=== PATIENT | male | born 1995 ===

== ENCOUNTER 2017-10-01 11:42 | Emergency (ER) | payer OTHER ==
[2017-10-01 11:49] VITALS: O2SAT 98
--- NOTE | 2017-10-01 13:57 | ED PDOC ---
HPI: Neurologic - General Time Seen by Provider: 10/01/17 12:14 Chief Complaint (Nursing): Weakness/Neurological Deficit Chief Complaint (Provider): Left Sided Facial Paresthesia Source: patient Exam Limitations: no limitations - History of Present Illness Timing/Duration: other (x4 days) Associated Symptoms: paresthesia Allergies/Adverse Reactions: Allergies No Known Allergies Allergy (Verified 10/01/17 12:07) Home Medications: Ambulatory Orders Acyclovir 400 mg PO 5XD #50 tablet 10/01/17 Prednisone [Deltasone] 20 mg PO DAILY #24 tablet 10/01/17 Additional Complaint(s): Markell Buitrago is a 21 year old male, with no significant past medical history, who presents to the emergency department for evaluation of left sided facial paresthesias for the last x4 days. He reports numbness and tingling and states he can't blink completely with his left eyelid. Patient also reports increase tearing from the left eye, numbness and tingling to left side of the tongue and states his taste of food has been altered. He took no medications [employer]GR[employer]HER. He denies any extremity weakness, numbness, headache, vision changes, fever, or chills. No further medical complaints. PMD: None. Past Medical History Reviewed: Historical Data, Nursing Documentation, Vital Signs Vital Signs: Last Vital Signs Temp 99.0 F 10/01/17 11:48 Pulse 85 10/01/17 11:48 Resp 19 10/01/17 11:48 BP 137/77 10/01/17 11:48 Pulse Ox 98 10/01/17 11:48 - Medical History PMH: No Chronic Diseases - Surgical History Surgical History: No Surg Hx - Family History Family History: States: Unknown Family Hx - Social History Current smoker - smoking cessation education provided: No Alcohol: None Drugs: Denies - Home Medications Home Medications: Ambulatory Orders Medication Instructions Recorded Acyclovir 400 mg PO 5XD #50 tablet 10/01/17 Prednisone [Deltasone] 20 mg PO DAILY #24 tablet 10/01/17 - Allergies Allergies/Adverse Reactions: Allergies Allergy/AdvReac Type Severity Reaction Status Date / Time No Known Allergies Allergy Verified 10/01/17 12:07 Review of Systems ROS Statement: Except As Marked, All Systems Reviewed And Found Negative Constitutional: Negative for: Fever, Chills Eyes: Positive for: Other (increased tearing to left eye). Negative for: Vision Change ENT: Positive for: Other (numbness and tingling to left side of tongue) Neurological: Positive for: Numbness (left facial parethesia. No extremity numbness). Negative for: Weakness, Headache Physical Exam - Reviewed Nursing Documentation Reviewed: Yes Vital Signs Reviewed: Yes - Physical Exam Comments: GENERALIZED APPEARANCE: Patient is awake, alert, oriented x3 in no acute distress. Resting comfortably SKIN: Warm, dry; (-) cyanosis. HEAD: (-) scalp swelling or tenderness. EYES: (-) conjunctival pallor. (-) Conjunctival injection, (-) hyphema, (-) ecchymosis. (-) Periorbital tenderness or swelling. ENMT: Pharynx clear, uvula midline (-) erythema (-) exudate. TMs: (-) bulging - ) erythema. Nares patent. NECK: Supple, FROM (-) tenderness, (-) stiffness, (-) lymphadenopathy. CHEST AND RESPIRATORY: (-) rales, (-) rhonchi, (-) wheezes; breath sounds equal bilaterally. Respirations even and nonlabored, speaking in full sentences. HEART AND CARDIOVASCULAR: (-) irregularity; (-) murmur, (-) gallop. ABDOMEN AND GI: Soft; (-) distention, (-) tenderness, (-) rebound, (-) guarding EXTREMITIES: FROM throughout, (-) deformity NEURO AND PSYCH: (+) Decreased sensation to the left side of his face. Delayed blink on left side, paralysis of the left forehead muscles. Mental status as above. 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 EOMI and painless, (-) dysarthria (-) aphasia; tongue and uvula midline. Strength symmetric. Gait: normal. Speech: clear. - ECG O2 Sat by Pulse Oximetry: 98 (RA) Pulse Ox Interpretation: Normal Medical Decision Making Medical Decision Making: Time: 12:14 Initial Impression: Medina's palsy Initial Plan: --Zovirax 400 mg PO --Prednisone tab 60 mg PO --Reevaluation 1355 On re-evaluation, patient offers no additional complaints. On exam, patient remains AAOx3, in no acute distress. Lungs clear to auscultation, cardiac RRR, abdomen soft, non-tender. Vitals stable. Lab/Diagnostic results d/w the patient in great detail. Diagnosis of facial paresthesia, medina's palsy d/w the patient. Based on history, exam and diagnostic results, plan will be for outpatient follow up. Patient instructed to follow-up with pmd / referral provided / the clinic in 1- 2 days without fail. Advised to take medication as prescribed. Return to the emergency room at any time for any new or worsening symptoms. Patient states he fully agrees with and understands discharge instructions. States that he agrees with the plan and disposition. Verbalized and repeated discharge instructions and plan. I have given the patient opportunity to ask any additional questions. ----- Scribe Attestation: Documented by Dominguez Gabriel, acting as a scribe for Adriane Sutton PA-C. Provider Scribe Attestation: All medical record entries made by the Scribe were at my direction and personally dictated by me. I have reviewed the chart and agree that the record accurately reflects my personal performance of the history, physical exam, medical decision making, and the department course for this patient. I have also personally directed, reviewed, and agree with the discharge instructions and disposition. Disposition - Clinical Impression Clinical Impression: Facial paresthesia, Medina's palsy - Patient ED Disposition Is Patient to be Admitted: No Counseled Patient/Family Regarding: Studies Performed, Diagnosis, Need For Followup, Rx Given - Disposition Referrals: [facility] [Outside] Disposition: Routine/Home Disposition Time: 13:57 Condition: STABLE Additional Instructions: FOLLOW UP WITH PMD/CLINIC IN 1-2 DAYS WITHOUT FAIL. RETURN TO ED WITH ANY NEW OR WORSENING SYMPTOMS. TAKE MEDICATIONS PRESCRIBED. Prescriptions: Acyclovir 400 mg PO 5XD #50 tablet Prednisone [Deltasone] 20 mg PO DAILY #24 tablet Instructions: Medina's Palsy Forms: [employer] (Nepalese) Print Language: ICELANDIC - POA Present On Arrival: None
[2017-10-01 14:34] VITALS: BP 128/77; PULSE 82; RESP 16; TEMP 98.9
== END 2017-10-01 14:35 | disposition home or self-care (01) ==
LOC: H.ER 11:42
DX: G51.0 Bell's palsy (principal)